=== PATIENT | female | born 1990 | race Caucasian/White ===

== ENCOUNTER 2022-12-01 20:09 | Emergency (ER) | payer MEDICAID ==
[~2022-12-01] VITALS: Ht 160 cm; Wt 75.0 kg
[2022-12-01 20:24] VITALS: BP 137/93
[2022-12-01 20:53] LABS: CLARITY URINE CLEAR (CLEAR); COLOR URINE YELLOW (YELLOW); KETONES URINE 2+ (NEGATIVE); LEUKOCYTE ESTERASE URINE NEGATIVE (NEGATIVE); NITRITE URINE NEGATIVE (NEGATIVE); OCCULT BLOOD URINE NEGATIVE (NEGATIVE); PH URINE 6.5 (4.5-8.0); PROTEIN URINE NEGATIVE (NEGATIVE); SPECIFIC GRAVITY URINE 1.009 (1.005-1.030); UROBILINOGEN URINE 0.2 E.U./dL (0.2-1.0)
[2022-12-01 21:00] LABS: BASOPHILS % 0.3 % (0.0-2.0); EOSINOPHILS % 0.8 % (0.0-5.0); HEMATOCRIT. 36.1 % (36.0-48.0); HEMOGLOBIN. 12.1 g/dL (12.0-16.0); LYMPHOCYTES % 36.1 % (20.0-50.0); MEAN CORPUSCULAR HEMOGLOBIN 30.2 pg (28.0-32.0); MEAN PLATELET VOLUME 8.5 fl (7.4-10.4); MONOCYTES % 4.8 % (2.0-8.0); PLATELET 273 x1000/uL (130-400); RED BLOOD CELL COUNT 4.01 mill/uL (4.2-5.4); RED CELL DISTRIBUTION WIDTH 13.5 % (11.6-14.6)
[2022-12-01 21:08] LABS: CHLORIDE 103 mEq/L (98-107)
[2022-12-01 21:34] LABS: B-HCG QUANTITATIVE 62483 mIU/mL (<3)
[2022-12-02] MEDS: ACETAMINOPHEN 325MG TABLET PO PRN ×3 (00:17→01:07)
[2022-12-02] MEDS ORDERED: POTASSIUM CHLORIDE 20MEQ TABLET SR PO ONE (01:30)
[2022-12-02] MEDS ORDERED: POTASSIUM CHLORIDE 20MEQ TABLET SR PO NR (02:00)
== END 2022-12-02 07:26 | disposition home or self-care (01) ==
LOC: ER 20:09
DX: O26.891 Other specified pregnancy related conditions, first trimester (principal); Z3A.10 10 weeks gestation of pregnancy
CPT/HCPCS: 36415; 72195; 74181; 76705; 76801; 80053; 81003; 81025; 84702; 85025; 86850; 86900; 99284

== ENCOUNTER 2022-12-14 05:07 | Emergency (ER) | payer MEDICAID ==
[~2022-12-14] VITALS: Ht 160 cm; Wt 74.7 kg
[2022-12-14 06:08] LABS: BASOPHILS % 0.2 % (0.0-2.0); HEMATOCRIT. 36.7 % (36.0-48.0); HEMOGLOBIN. 12.4 g/dL (12.0-16.0); LYMPHOCYTES % 51.2 % (20.0-50.0); MEAN CORPUSCULAR HEMOGLOBIN 30.4 pg (28.0-32.0); MEAN CORPUSCULAR VOLUME 89.9 fL (81.0-99.0); MEAN PLATELET VOLUME 8.4 fl (7.4-10.4); MONOCYTES % 6.6 % (2.0-8.0); PLATELET 300 x1000/uL (130-400); RED BLOOD CELL COUNT 4.09 mill/uL (4.2-5.4); RED CELL DISTRIBUTION WIDTH 13.4 % (11.6-14.6)
[2022-12-14 06:35] LABS: CHLORIDE 105 mEq/L (98-107)
[2022-12-14 06:49] LABS: HCG SCREEN POSITIVE
[2022-12-14 08:14] VITALS: BP 109/63
== END 2022-12-14 09:30 | disposition home or self-care (01) ==
LOC: ER 05:07
DX: O20.0 Threatened abortion (principal); Z3A.12 12 weeks gestation of pregnancy
CPT/HCPCS: 36415; 76801; 76817; 80053; 84702; 84703; 85025; 86850; 86900; 86901; 99284; Z7610

== ENCOUNTER 2023-12-08 16:26 | Emergency (ER) | payer MEDICAID ==
[~2023-12-08] VITALS: Ht 172.7 cm; Wt 81.0 kg
[2023-12-08 16:37] VITALS: TEMP 98.5; O2SAT 100
[2023-12-08] MEDS ORDERED: KETOROLAC 15MG/ML VIAL IM ONE (19:15)
[2023-12-08 19:44] LABS: HCG SCREEN NEGATIVE
[2023-12-08 20:52] VITALS: BP 128/95; PULSE 62; RESP 18
== END 2023-12-08 20:52 | disposition home or self-care (01) ==
LOC: ER 16:26
DX: S00.83XA Contusion of other part of head, initial encounter (principal); Y08.89XA Assault by other specified means, initial encounter; Y93.89 Activity, other specified; Y92.89 Other specified places as the place of occurrence of the external cause; Y99.8 Other external cause status
CPT/HCPCS: 99284; 70450; 81025; 84703; 70486; J1885